=== PATIENT | female | born 1955 | race Caucasian/White ===

== ENCOUNTER → 2021-01-13 08:45 | Outpatient (BNVA) | payer SELFPAY | PROVIDERS: Visit Provider Dermatology | DX: Z13.9 Encounter for screening, unspecified (principal) | CPT/HCPCS: 99398 ==

== ENCOUNTER → 2024-04-10 09:22 | Outpatient (BNVA) | payer OTHER, SELFPAY | DX: Z76.89 Persons encountering health services in other specified circumstances | CPT/HCPCS: 80053; 80061; 85025 ==

== ENCOUNTER → 2024-05-03 11:09 | Outpatient (BNVA) | payer MEDICARE, SELFPAY | PROVIDERS: Visit Provider Student in an Organized Health Care Education/Training Program | DX: Z12.11 Encounter for screening for malignant neoplasm of colon (principal) | CPT/HCPCS: 99024; 99204 ==

== ENCOUNTER → 2024-05-11 16:09 | Outpatient (BNVA) | payer MEDICARE, SELFPAY | PROVIDERS: Visit Provider Nurse Practitioner Family | DX: S42.492A Other displaced fracture of lower end of left humerus, initial encounter for closed fracture (principal); X58.XXXA Exposure to other specified factors, initial encounter | CPT/HCPCS: 73110 ==

== ENCOUNTER 2024-05-11 16:44 | Emergency (ER) | payer MEDICARE, SELFPAY ==
[2024-05-11 17:06] VITALS: BP 162/78; PULSE 70; RESP 17; TEMP 36.7; O2SAT 94; BMI 37.3
--- NOTE | 2024-05-11 17:25 | ED_ITS ---
Documented by User: MONICA Doyle 05/11/24 19:32 HPI - Extremity Problem General: Chief complaint: Extremity Injury, Upper Stated complaint: lt arm inj Time Seen by Provider: 05/11/24 17:12 Source: patient Mode of arrival: ambulatory Limitations: no limitations History of Present Illness: Patient is a 69-year-old female presents to the emergency department with left upper extremity injury that occurred this evening. Initially went to urgent care had x-rays done that showed comminuted fracture of the left distal radius, they sent her here for further evaluation. She states that the event occurred when the wind blew back a large metal door, ultimately she is unsure what happened but just remember sudden sharp pain to her left distal wrist. She is right-hand dominant, has never fractured this wrist before. She is not reporting any distal sensory changes, she can still move her hand and has no problems moving the elbow and no pain at the left elbow. No skin color changes, no coolness to extremity reported. She states she is in mild amount of pain at this time, does want some pain medication in case it gets worse. MD Complaint: joint pain Onset (ago): hour(s) Location: left and upper extremity (Wrist) Radiation: none Associated symptoms: Deny chest pain, fever(s) or rash Related Data Previous Rx's Medication Instructions Recorded hydrochlorothiazide 25 mg tablet 25 mg PO DAILY #90 tabs 04/10/24 losartan 100 mg tablet 100 mg PO DAILY #90 tabs 04/10/24 metoprolol succinate 50 mg 50 mg PO DAILY #90 tabs 04/10/24 tablet,extended release 24 hr polyethylene glycol 3350 17 4 g PO DAILY #119 grams 04/10/24 gram/dose oral powder (Miralax) pramoxine 1 % topical foam 1 applic IN BID #15 grams 05/07/24 (Proctofoam) hydrocodone 5 mg-acetaminophen 325 1 tab PO Q6H PRN pain #20 tabs 05/11/24 mg tablet polyethylene glycol 3350 17 17 g PO DAILY #510 grams 05/11/24 gram/dose oral powder (Miralax) Allergies Allergy/AdvReac Type Severity Reaction Status Date / Time Sulfa (Sulfonamide Allergy causes her Verified 05/11/24 16:01 Antibiotics) to not be able to walk Review of Systems General: Reports: 10 or more systems reviewed and unremarkable except in HPI and below Const: Denies: fever(s) or chills Card: Denies: chest pain Resp: Denies: dyspnea or productive cough GI: Denies: abdominal pain, nausea, vomiting or diarrhea : Denies: flank pain Musc: Reports: joint pain (Left wrist), joint swelling (Left wrist), limited range of motion (Left wrist) and deformity (Left wrist); Denies: neck pain, back pain, extremity pain, extremity swelling, joint redness, joint warmth or muscle weakness Skin/Breast: Denies: rash Neuro: Denies: headache(s), numbness in extremities or weakness in extremities PFSH ED PFSH: Medical History Seborrheic keratosis Colon cancer screening Constipation Screening mammogram for breast cancer Hypertension Encounter to establish care with new provider Family History Father Hypertension Brother Hypertension Social History Smoking and tobacco/nicotine status: never used tobacco/nicotine Physical Exam Const: COMMON NORMALS: no acute distress, patient oriented x3, no limitations, healthy appearing, alert and well nourished HENMT: COMMON NORMALS: normocephalic and atraumatic HEAD & SCALP: normocephalic and atraumatic Neck/C-Spine: COMMON NORMALS: full ROM, supple and no meningeal signs Resp: COMMON NORMALS: normal respiratory effort, No use of accessory muscles and clear to auscultation bilaterally AUSCULTATION: clear to auscultation bilaterally Cardio: COMMON NORMALS: regular rate and regular rhythm RATE: regular rate RHYTHM: regular rhythm Extremity: NARRATIVE EXTREMITY EXAM: Obvious deformity to left wrist. Distal sensations intact, palpable radial pulse. Swelling noted to the left wrist, reproducible tenderness to palpation over this area. Normal elbow examination. Normal hand examination. Normal capillary refill. No skin color changes. No skin tenting. Neuro: COMMON NORMALS: patient oriented x3, moves all extremities, no focal motor deficits and no sensory deficits noted SENSORIUM/ORIENTATION: Yes alert MENINGEAL SIGNS: Yes no meningeal signs Skin: COMMON NORMALS: no rashes or lesions noted GENERAL SKIN EXAM: no rashes or lesions noted Course Vital Signs: Vital signs: Vital Signs Temperature 98.0 F 05/11/24 17:06 Pulse Rate 96 05/11/24 18:52 Respiratory Rate 21 H 05/11/24 18:52 Blood Pressure 139/63 05/11/24 18:52 Pulse Oximetry 97 05/11/24 18:51 Oxygen Delivery Me thod Room Air 05/11/24 17:06 MDM - Extremity (Nontraumatic) Medical Decision Making Patient presented with deformity to left wrist after injuring prior to arrival. Palpable radial pulse, no distal sensory changes or signs of vascular compromise. Spoke with Dr. Anguiano, and reviewed x-ray images, recommends reduction in the ED with outpatient follow-up after being placed in sugar-tong splint. Discussed case with Dr. Bales, who will place procedural sedation note. Did achieve some reapproximation with the reduction, she was placed in a sugar-tong splint and post splint neurovascular status intact. Monitored here in the emergency department for period of time postanesthesia. Pain has been controlled here, she will be sent in pain medications and informed to follow-up outpatient with orthopedics. No complications with anesthesia or reduction. Informed of return precautions, endorsed understanding. All radiology interpretation(s) finalized by discharge Discharge Plan Discharge Patient Disposition: Home Clinical Impression: Distal radial fracture Qualifiers: Encounter type: initial encounter Fracture type: closed Fracture morphology: other intra-articular Laterality: left Qualified Code(s): S52.572A - Other intraarticular fracture of lower end of left radius, initial encounter for closed fracture Condition: Stable Prescriptions: New hydrocodone-acetaminophen 5-325 mg tablet 1 tab PO Q6H PRN (Reason: pain) Qty: 20 0RF polyethylene glycol 3350 [Miralax] 17 gram/dose powder 17 g PO DAILY Qty: 510 0RF Rx Instructions: Take 1 scoop daily while taking pain medications. No Action hydrochlorothiazide 25 mg tablet 25 mg PO DAILY Qty: 90 1RF losartan 100 mg tablet 100 mg PO DAILY Qty: 90 1RF metoprolol succinate 50 mg tablet extended release 24 hr 50 mg PO DAILY Qty: 90 1RF polyethylene glycol 3350 [Miralax] 17 gram/dose powder 4 g PO DAILY Qty: 119 0RF pramoxine [Proctofoam] 1 % foam 1 applic IN BID Qty: 15 2RF Discharge Orders: Discharge ED (Routine); Ordered 05/11/24 Ordered By: Gene Akhtar Referrals: Madiha Campos NP [Primary Care Provider] - Patient Instructions: Arm Fracture in Adults (ED) Activity Restrictions/Additional Instructions: Splint on, follow-up with orthopedics as we discussed. Take pain medications. Return with any numbness, skin color changes, severe worsening of pain, or other concerning symptoms. Coding Level of Care Code ED Grinding Room Inspector for Chg Fwd Documented by User: Meena Bales MD 05/11/24 19:25 HPI - Extremity Problem General: Chief complaint: Extremity Injury, Upper Stated complaint: lt arm inj Time Seen by Provider: 05/11/24 17:12 Related Data Previous Rx's Medication Instructions Recorded hydrochlorothiazide 25 mg tablet 25 mg PO DAILY #90 tabs 04/10/24 losartan 100 mg tablet 100 mg PO DAILY #90 tabs 04/10/24 metoprolol succinate 50 mg 50 mg PO DAILY #90 tabs 04/10/24 tablet,extended release 24 hr polyethylene glycol 3350 17 4 g PO DAILY #119 grams 04/10/24 gram/dose oral powder (Miralax) pramoxine 1 % topical foam 1 applic IN BID #15 grams 05/07/24 (Proctofoam) hydrocodone 5 mg-acetaminophen 325 1 tab PO Q6H PRN pain #20 tabs 05/11/24 mg tablet polyethylene glycol 3350 17 17 g PO DAILY #510 grams 05/11/24 gram/dose oral powder (Miralax) Allergies Allergy/AdvReac Type Severity Reaction Status Date / Time Sulfa (Sulfonamide Allergy causes her Verified 05/11/24 16:01 Antibiotics) to not be able to walk [facility] ED PFSH: Medical History Seborrheic keratosis Colon cancer screening Constipation Screening mammogram for breast cancer Hypertension Encounter to establish care with new provider Family History Father Hypertension Brother Hypertension Social History Smoking and tobacco/nicotine status: never used tobacco/nicotine Course Vital Signs: Vital signs: Vital Signs Temperature 98.0 F 05/11/24 17:06 Pulse Rate 96 05/11/24 18:52 Respiratory Rate 21 H 05/11/24 18:52 Blood Pressure 139/63 05/11/24 18:52 Pulse Oximetry 97 05/11/24 18:51 Oxygen Delivery Me thod Room Air 05/11/24 17:06 MDM - Extremity (Nontraumatic) Medical Decision Making Patient presented with deformity to left wrist after injuring prior to arrival. Palpable radial pulse, no distal sensory changes or signs of vascular compromise. Spoke with Dr. Anguiano, and reviewed x-ray images, recommends reduction in the ED with outpatient follow-up after being placed in sugar-tong splint. Discussed case with Dr. Bales, who will place procedural sedation note. Did achieve some reapproximation with the reduction, she was placed in a sugar-tong splint and post splint neurovascular status intact. Monitored here in the emergency department for period of time postanesthesia. Pain has been controlled here, she will be sent in pain medications and informed to follow-up outpatient with orthopedics. No complications with anesthesia or reduction. Informed of return precautions, endorsed understanding. Procedural sedation Time: 1904 Confirmed: Patient and procedure correct. Consent: Consent: The risks and benefits of monitored anesthesia care, including the risk of aspiration, nausea/vomiting and the risks of not performing the procedure, including severe pain and inability to complete the procedure, were all discussed with the patient. The alternatives of performing the procedure, including local anesthesia and IV analgesia, also discussed. The patient has a ride home available Indication: Closed reduction. Monitoring: Cardiac, blood pressure, continuous pulse oximetry. Preparation: Suction, IV access, Constant attendance, Supplemental oxygen. ASA Class: I- healthy patient. No significant family history of sedation complications See ER physician note for summary of the patient's present medication list and for drug allergy and intolerance history Physical exam: Airway: appears normal, Heart: regular rate and rhythm, Breath sounds: equal. Pre sedation vital signs: See nurse's notes. Procedural sedation: 50 mg IV propofol. . Post sedation vital signs: See nurse's notes. Patient tolerated: Well. Complications: The patient was recovered from the sedation without complication or incident. Post sedation condition: Patient returned to pre-sedation level of awareness. The monitoring was discontinued at this time. Performed by: Self. Pt attended by independent trained observer time of sedation was 15 minutes. . Discharge Plan Discharge Patient Disposition: Home Clinical Impression: Distal radial fracture Qualifiers: Encounter type: initial encounter Fracture type: closed Fracture morphology: other intra-articular Laterality: left Qualified Code(s): S52.572A - Other intraarticular fracture of lower end of left radius, initial encounter for closed fracture Condition: Stable Prescriptions: New hydrocodone-acetaminophen 5-325 mg tablet 1 tab PO Q6H PRN (Reason: pain) Qty: 20 0RF polyethylene glycol 3350 [Miralax] 17 gram/dose powder 17 g PO DAILY Qty: 510 0RF Rx Instructions: Take 1 scoop daily while taking pain medications. No Action hydrochlorothiazide 25 mg tablet 25 mg PO DAILY Qty: 90 1RF losartan 100 mg tablet 100 mg PO DAILY Qty: 90 1RF metoprolol succinate 50 mg tablet extended release 24 hr 50 mg PO DAILY Qty: 90 1RF polyethylene glycol 3350 [Miralax] 17 gram/dose powder 4 g PO DAILY Qty: 119 0RF pramoxine [Proctofoam] 1 % foam 1 applic IN BID Qty: 15 2RF Discharge Orders: Discharge ED (Routine); Ordered 05/11/24 Ordered By: Gene Akhtar Referrals: Madiha Campos NP [Primary Care Provider] - Patient Instructions: Arm Fracture in Adults (ED) Activity Restrictions/Additional Instructions: Splint on, follow-up with orthopedics as we discussed. Take pain medications. Return with any numbness, skin color changes, severe worsening of pain, or other concerning symptoms. Coding Level of Care Code ED Grinding Room Inspector for Petrona Chavez
[2024-05-11 17:47] VITALS: RESP 16; O2SAT 94
[2024-05-11] MEDS: HYDROmorphone 1 mg/mL INJ 1 mL IVP (17:47)
[2024-05-11 17:53] VITALS: BP 132/65; PULSE 74; O2SAT 94
--- NOTE | 2024-05-11 17:56 | XRR_ITS ---
PROCEDURE INFORMATION: Exam: XR Left Wrist Exam date and time: 05/11/2024 6:06 PM Age: 69 years old Clinical indication: Injury or trauma; Fall; Blunt trauma (contusions or hematomas); Wrist; Left; Additional info: Post-reduction film TECHNIQUE: Imaging protocol: Radiologic exam of the left wrist. Views: 3 or more views. COMPARISON: CR XR wrist LT min 3V* [id number] 05/11/2024 4:10 PM FINDINGS: Bones/joints: Interval closed reduction of a comminuted distal humeral metaphysis fracture and splint placement. Improved angulation compared with prior, though there is similar 1/2 shaft with posterior displacement of the distal fragment. Soft tissues: Normal. XR/XR wrist LT min 3V* [id number] IMPRESSION: Interval closed reduction of a distal humeral metaphysis fracture with improved angulation but ongoing displacement.
[2024-05-11] MEDS: ondansetron 2 mg/ML SDV 2 mL 4 MG IVP (18:18)
[2024-05-11] MEDS: propofol 10 mg/mL SDV 20 mL 50 MG IVP (18:42)
[2024-05-11 18:51] VITALS: BP 132/58; PULSE 54; RESP 22; O2SAT 97
[2024-05-11 18:52] VITALS: BP 139/63; PULSE 96; RESP 21; O2SAT 96
--- NOTE | 2024-05-11 19:11 | PC.NURSE ---
wasted 150 mg of propofol with PIETRO Sharif.
[2024-05-11] MEDS: HYDROcodone-acetaminophen 5-325 mg Tablet 2 TAB PO (19:50)
[2024-05-11 19:53] VITALS: BP 135/64; PULSE 59; O2SAT 96
--- NOTE | 2024-05-14 08:16 | DCPLANNER ---
message sent to Ortho for follow up on left distal fx.
== END 2024-05-11 19:54 | disposition home or self-care (01) ==
PROVIDERS: Emergency Provider Physician Assistant
DX: S52.572A Other intraarticular fracture of lower end of left radius, initial encounter for closed fracture (principal); I10 Essential (primary) hypertension; X58.XXXA Exposure to other specified factors, initial encounter
CPT/HCPCS: 73110; 96374; 96375; 99285; J1171; J2405; J2704

== ENCOUNTER 2024-05-14 10:09 | Outpatient (CLI) | payer MEDICARE, SELFPAY ==
--- NOTE | 2024-05-14 10:13 | XRR_ITS ---
PROCEDURE INFORMATION: Exam: XR Chest Exam date and time: 05/14/2024 10:29 AM Age: 69 years old Clinical indication: Abdominal pain; Generalized; Patient HX: Constipation, bloody stools for 2 months; Additional info: Acute abdominal pain, bloody stools, scant frequent bm TECHNIQUE: Imaging protocol: Radiologic exam of the chest. Views: 1 view. COMPARISON: No relevant prior studies available. FINDINGS: Tubes, catheters and devices: None. Lungs: Evidence for calcified lung granuloma in the right chest. Lung volumes are decreased. Linear density identified within bilateral lower lungs. The lungs appear otherwise clear. Pleural spaces: No pleural effusion. No pneumothorax. Heart/Mediastinum: Mediastinum and dominik appear unremarkable. Bones/joints: Mild generalized bony degenerative changes. Bony structures appear otherwise unremarkable. PROCEDURE INFORMATION: Exam: XR Abdomen Exam date and time: 05/14/2024 10:29 AM Age: 69 years old Clinical indication: Abdominal pain; Generalized; Patient HX: Constipation, bloody stools for 2 months; Additional info: Acute abdominal pain, bloody stools, scant frequent bm TECHNIQUE: Imaging protocol: Radiologic exam of the abdomen. Views: 2 Views. Upright and supine views. AP Supine and Upright COMPARISON: No relevant prior studies available. FINDINGS: Tubes, catheters and devices: None. Gastrointestinal tract: Moderate volume of colonic fecal material identified throughout colon. Intraperitoneal space: No visualized evidence for free intraperitoneal air, within the limitations of this study. Organs: No solid organomegaly identified. Bones/joints: Mild to moderate generalized bony degenerative changes. Bony structures appear otherwise unremarkable. Soft tissues: Unremarkable. Other findings: No radiopaque foreign body or abnormal opacity. XR/XR acute abdomen series [id number] IMPRESSION: Linear bilateral lower chest pulmonary atelectasis, or scarring. Decreased lung volumes. IMPRESSION: Moderate degree constipation.
== END 2024-05-14 10:10 | disposition home or self-care (01) ==
PROVIDERS: Visit Provider Emergency Medicine
DX: Z12.11 Encounter for screening for malignant neoplasm of colon (principal); R10.9 Unspecified abdominal pain; J98.11 Atelectasis; R91.8 Other nonspecific abnormal finding of lung field; K59.00 Constipation, unspecified; J98.4 Other disorders of lung; M47.9 Spondylosis, unspecified
CPT/HCPCS: 74022

== ENCOUNTER → 2024-05-15 14:29 | Outpatient (BNVA) | payer SELFPAY | PROVIDERS: Visit Provider Student in an Organized Health Care Education/Training Program | DX: S52.502A Unspecified fracture of the lower end of left radius, initial encounter for closed fracture; W20.8XXA Other cause of strike by thrown, projected or falling object, initial encounter | CPT/HCPCS: 73110; 99204 ==

== ENCOUNTER 2024-05-23 10:06 | Day surgery (SDC) | payer MEDICARE, SELFPAY ==
[2024-05-23] VITALS (11 sets, daily range): BP systolic 112–167; BP diastolic 68–102; PULSE 69–87; RESP 9–23; TEMP 36.3–37.2; O2SAT 91–97; BMI 37.2
--- NOTE | 2024-05-23 | XR_ITS ---
WS: [id number] Exam: XR wrist LT min 3V* [id number] Date/Time of Exam: 05/23/2024 12:00 AM Reason For Exam: TROY PICS Intraoperative AP and lateral views of the LEFT wrist are submitted. Images depict volar plate and screw fixation involving a comminuted fracture of the distal radius. Al ignment is satisfactory for healing. Postop changes in the adjacent soft tissues.
[2024-05-23] MEDS: ketorolac 30 mg/mL INJ IVP (10:27)
[2024-05-23] MEDS: acetaminophen 1,000 MG/100 ML PIGGYBACK 400 MG IV (10:27)
[2024-05-23] MEDS: sodium chloride 0.9% 1,000 ML 30 ML IV (10:27)
[2024-05-23] MEDS: scopolamine 1 mg PATCH 1 PATCH TRANSDERMA (10:28)
--- NOTE | 2024-05-23 10:36 | ANES.PREANE2 ---
Pre-Anesthetic Assessment Height/Weight: Height 1.6 m Weight 95.254 kg Temp Pulse Resp BP Pulse Ox O2 Del Method 99 F 87 18 160/102 95 Room Air 05/23/24 10:23 05/23/24 10:23 05/23/24 10:23 05/23/24 10:23 05/23/24 10:23 05/23/24 10:29 Operation Date: 05/23/24 16:25 Proposed Procedures p ORIF Wrist ORIF Distal Radius(Left) - David Faribault, DO Familial anesthetic complications: None Was Beta Idalia taken within 24 hours: N/A Was Clonidine taken within 24 hours: N/A Last intake: > 8 hrs Social No alcohol and No tobacco Exam alert, oriented x 3, clear to auscultation bilaterally and regular rate & rhythm Airway Mallampati: Class II Dentition: full CV/HEM Hypertension Metabolic Morbid Obesity Anesthetic Plan ASA status: 3 Anesthesia: General and Regional (specify below) Risk of > 500 ml blood loss (7ml/kg in children): No Medications/Allergies Home Medications Medication Instructions Recorded Confirmed Last Taken Type hydrochlorothiazide 25 mg tablet 25 mg PO DAILY #90 tabs 04/10/24 05/22/24 05/19/24 Rx losartan 100 mg tablet 100 mg PO DAILY #90 tabs 04/10/24 05/22/24 05/22/24 Rx metoprolol succinate 50 mg 50 mg PO DAILY #90 tabs 04/10/24 05/22/24 05/22/24 Rx tablet,extended release 24 hr hydrocodone 5 mg-acetaminophen 325 1 tab PO Q6H PRN pain #20 tabs 05/11/24 05/22/24 05/21/24 Rx mg tablet pramoxine 1 % topical foam 1 applic CA BID #15 grams 05/14/24 05/22/24 Unknown Rx (Proctofoam) bisacodyl 5 mg tablet,delayed 5 mg PO DAILY PRN Constipation 05/22/24 05/22/24 Unknown History release (Dulcolax (bisacodyl)) Allergies Allergy/AdvReac Type Severity Reaction Status Date / Time Sulfa (Sulfonamide Allergy causes her Verified 05/23/24 10:19 Antibiotics) to not be able to walk Current Medications Generic Name Dose Route Start Last Admin Trade Name Freq PRN Reason Stop Dose Admin Sodium Chloride 1,000 mls @ 30 mls/hr 05/23/24 10:15 05/23/24 10:27 Sodium Chloride 0.9% IV 05/24/24 10:14 30 mls/hr .Q24H BLADE Administration PFSH Anesthesia Medical History Blood in stool, nory Seborrheic keratosis Colon cancer screening Constipation Screening mammogram for breast cancer Hypertension Encounter to establish care with new provider Family History Father Hypertension Brother Hypertension Social History Smoking and tobacco/nicotine status: never used tobacco/nicotine Data Anesthesia Cardiac Studies: No Data to Display
--- NOTE | 2024-05-23 11:18 | ANES.PROC ---
Anesthesia Procedures Procedure/Date: 05/23/24 Nerve Block ^: Nerve Block 1: Main Anesthesia: general anesthesia Time Out Performed: Yes Consent: requested by attending/covering physician, from patient, from other, risks and benefits reviewed and patient agrees to proceed Nerve block location: axillary (L) Anesthesia monitors applied: pulse oximetry, EKG, BP cuff and oxygen Nerve block position: supine Anesthetic Used: ropivicaine 0.5% (30 ml) and with decadron (4 mg) Ultrasound used to: recognize landmarks and visualize and ID brachial plexus Nerve Stimulator Used?: No Interscalene/Femoral BLK: 2 stimuplex 22 g needle used for position and inplane approach, visualize local anesthetic spread and no vascular puncture identified Injection: neg aspiration of heme Patient Tolerated Procedure: well Complications: none
--- NOTE | 2024-05-23 11:37 | W.PM.OPSUD ---
Surgery/Procedure H&P Update DATE OF PROCEDURE: May 23, 2024 DATE H&P PERFORMED: 05/15/24 H&P UPDATE INFORMATION: I have reviewed H&P completed within last 30 days, I have examined patient prior to procedure and No changes to prior documentation PREOP DIAGNOSIS: Left distal radius fracture PRIMARY INDICATION FOR PROCEDURE: Left distal radius fracture displaced PLANNED PROCEDURE: Operation Date: 05/23/24 16:25 Proposed Procedures p ORIF Wrist ORIF Distal Radius(Left) - David Anguiano DO
[2024-05-23] MEDS: ceFAZolin 2,000 MG in sodium chloride 0.9% (plus) 50 ML 100 MG IV (11:51)
--- NOTE | 2024-05-23 13:35 | P.BOP_ITS ---
Date of Procedure: 05/23/2024 Surgeon: David Anguiano DO Professor Of Industrial Technology(s): Rafat Anguiano PA-C Procedure(s) performed: Left distal radius open reduction internal fixation 4 part intra-articular Findings of the procedure(s): Patient was found to have a comminuted displaced four-part intra-articular left distal radius fracture underwent ORIF this point without issues or complications, placed in a volar splint taken PACU stable condition Estimated blood loss: 10 mL Specimen(s) removed: None Post-operative diagnosis: Left distal radius four-part intra-articular fracture
--- NOTE | 2024-05-23 13:36 | P.OP_ITS ---
Operative Report Date of procedure: May 23, 2024 Surgeon: David Anguiano DO [employer] Operator: Rafat Anguiano PA-C: PA was necessary for assistance in this case with hand positioning to execute the procedure, retraction and protection of neurovascular structures, as well as to assist with reduction and assistance with instrumentation and fixation, as well as to assist with wound closure and dressing application. Procedure: Preop Diagnosis ?Left distal radius fracture ? Procedure: Post-op diagnosis: Same,4 part intra-articular Procedure done: Left distal radius open reduction internal fixation, 4-part intra-articular Implants: ?Arthrex left 3-hole narrow volar locking plate Combination of locking and nonlocking screws 2.7 mm distal Combination of locking and nonlocking screws 3.5 mm proximal Surgeon: David Anguiano DO Anesthesia: General and nerve Block (Regional) Estimated blood loss: 10 mL Tourniquet time: 61minutes IV fluids: See anesthesia record Complications: None Findings: See operative report narrative Condition: stable Disposition: same day Brief History: Patient is a 69-year-old female who presented to my office for a [id number] left distal radius fracture.? Patient has significant comminution and shortening as well as dorsal angulation patient active and at this point time through shared decision making patient like to proceed with a left distal radius ORIF.? We had a detailed discussion in the office about nonoperative and operative intervention.? At this point time I feel through shared decision? best option would be open reduction internal fixation she is active and already has a considerable deformity?and displacement as result through shared decision making patient would like to proceed with ORIF left distal radius fracture.? Detail the risk benefits complication alternatives to treatment option.? Understanding risk for surgery patient elects to proceed with surgical intervention.? All questions been answered at this time. Procedure: Patient seen and evaluated in the preoperative holding area.? Consent reviewed and signed with patient.? Correct extremities were marked and consent was reviewed and signed.? Patient was seen and evaluated by anesthesia department.? Underwent regional anesthesia. Once cleared for surgery pt was taken back to the operative suite.? Patient was then transported into the operative suite and kept on the OR gurney, all bony prominences well-padded patient was appropriate secured to bed in supine position.? An armboard was applied to the left upper extremity.? The left upper extremity had a nonsterile tourniquet applied.? Patient subsequently was then prepped and draped in standard orthopedic fashion she underwent anesthesia per the anesthesia department.? A final timeout was performed.? Patient received appropriate preoperative antibiotics. Esmarch was used exsanguinate the left upper extremity and tourniquet was insufflated to 250 mmHg. A standard modified FCR volar approach was performed to the left distal radius.? Sharp scalpel incision through skin and subcutaneous tissue.? I then switched to Littler dissection scissors identify the FCR tendon releases out of the sheath both proximally and distally mobilized the tendon ulnarly and then subsequently incised the floor of the FCR tendon sheath with care to just incise the floor.? I then bluntly sweep the FPL tendon muscle belly ulnarly and placed blunt self- retaining retractor.? At this point time I direct visualization of the pronator quadratus which was incised in standard L fashion off the radial and distal border in the distal radius and fracture site was scraped clean of interposed muscle belly.? I then identified the 4 part intra-articular distal radius fracture.? This was subsequently opened above and freed of interposing muscle belly as well as periosteum and fracture hematoma.? I did have to utilize my [place] which was placed through the fracture pattern and disengage the fracture and performed manual manipulation and anatomic reduction of the distal radius fracture.? ?Once satisfied with reduction and had appropriate anatomic reduction of the volar cortex.? This was confirmed with mini C arm in multiple orthogonal imaging.? At this point time? I selected a Arthrex anatomic distal radius plate utilizing a narrow 3-hole plate which would have appropriate spread distally.? This was then placed up to the distal radius while maintaining my reduction, pi ns were placed distally and proximally to confirm appropriate placement of the plate along the distal radius.? Minor adjustments were made and once I was satisfied I then subsequently drilled a bicortical 3.5 screw proximally in the oblong hole to allow for appropriate sliding of the distal radius plate appropriately to perfect position on the distal radius.? This had excellent fixation and purchase and brought the plate to bone.? While maintaining my reduction I then confirmed in multiple orthogonal imaging that my plate was in appropriate position.? Once satisfied with my position I then subsequently placed the peek targeting guide on the distal locking screws with Arthrex.? The locking guide was then subsequently loaded and I subsequently drilled and placed a fully threaded cortical screw to compress the plate to bone for the distal fracture fragment.? This was performed with plan to then remove this and placed a shorter locking screw had bicortical fixation with excellent purchase and appropriate reduction of my volar tilt and bringing plate to bone of the distal fragment and plate.? Once I was satisfied with my plate position as well as reduction of the distal radius which was confirmed on AP oblique and lateral imaging I then subsequently drilled measured and placed 3 locking screws around this cortical screw.? While drilling the most ulnar screw I did utilize a dental pick to hold up this lunate facet fracture fragment to hold up the joint line and maintain alignment while drilling and placing the locking screw distally. Then I subsequently removed the cortical screw and placed a shorter locking screw that did not penetrate the dorsal cortex.?? This completed my distal fixation.? I did utilize mini C arm to confirm appropriate placement of the screws these were all within the distal radius and no joint involvement within the radiocarpal joint or the DRUJ.? These had appropriate subchondral support and maintenance of reduction and fixation of the distal radius fracture.? ?I then turned my attention proximally and then I screwed in the locking guides for my final to screws proximally these were then subsequently drilled measured and appropriate length locking screws were then placed proximally with excellent fixation and locking technology into the plate.? This completed my construct.? The peek guide was subsequently removed and final imaging of the left distal radius open reduction internal fixation was taken of AP lateral as well and is orthogonal imaging.? I then took a inclination view which showed my radial styloid screw was out of the penetration of the joint.? All my distal screws were appropriate length did not penetrate dorsal cortex and did not penetrate the joint.? This completed my fixation.? Smooth wrist range of motion was then noted with no evidence of clicking. Wrist was then taken through pronation supination and stressed the DRUJ which was found to be stable.? The wound was then thoroughly irrigated.? Tourniquet was then subsequently deflated.? Hemostasis satisfactory with bipolar electrocautery.? I then subsequently placed interrupted 3-0 Vicryl sutures for subcutaneous tissue and then subsequently placed a nylon the skin for closure.? Incision was then dressed with Xeroform 4 x 4's Kerlix cast padding and a volar Ortho-Glass splint was then applied with Darell wrap and placed in a sling.? Disposition: Patient taken to PACU in stable condition recovering well receive appropriate discharge instructions as well as pain medication postoperatively.? Maintain splint until follow-up.? Nonweightbearing to operative upper extremity We will follow-up with Dr. Anguiano in the office in 2 weeks.? If any questions or concerns feel free to contact the office.
--- NOTE | 2024-05-23 13:38 | PM.PACU ---
PACU note Narrative: Patient is a 69-year-old female that just underwent a left wrist ORIF. Patient transferred to PACU in stable condition. Pain is well controlled. Dressing on hand is dry and in place. Patient's fingers are warm and well-perfused. Patient received a block for left arm so unable to assess sensation or motor. Exam: awake Disposition: discharged
== END 2024-05-23 15:01 | disposition home or self-care (01) ==
PROVIDERS: Visit Provider Student in an Organized Health Care Education/Training Program
PROC: (CPT 25609; principal; 2024-05-23 11:25)
DX: S52.502A Unspecified fracture of the lower end of left radius, initial encounter for closed fracture (principal); E66.01 Morbid (severe) obesity due to excess calories; Z68.37 Body mass index [BMI] 37.0-37.9, adult; I10 Essential (primary) hypertension; Z79.899 Other long term (current) drug therapy; Z88.2 Allergy status to sulfonamides
CPT/HCPCS: 25609; 73110; 76000; C1713; J0131; J0690; J1100; J1885; J2250; J2405; J2704; J2795; J3010; J7030

== ENCOUNTER → 2024-06-05 13:48 | Outpatient (BNVA) | payer MEDICARE, SELFPAY | PROVIDERS: Visit Provider Physician Assistant | DX: S52.502D Unspecified fracture of the lower end of left radius, subsequent encounter for closed fracture with routine healing (principal); Z98.890 Other specified postprocedural states; X58.XXXD Exposure to other specified factors, subsequent encounter | CPT/HCPCS: 73110 ==

== ENCOUNTER 2024-06-05 14:45 | Outpatient (CLI) | payer MEDICARE, SELFPAY | END 2024-06-05 14:46 | disposition home or self-care (01) | LOC: SPT 14:46 | PROVIDERS: Visit Provider Physician Assistant | DX: Z47.89 Encounter for other orthopedic aftercare (principal); S52.592D Other fractures of lower end of left radius, subsequent encounter for closed fracture with routine healing; X58.XXXS Exposure to other specified factors, sequela | CPT/HCPCS: 99024; L3908 ==

== ENCOUNTER → 2024-06-19 09:26 | Outpatient (BNVA) | payer MEDICARE, SELFPAY | PROVIDERS: Visit Provider Physician Assistant | DX: Z98.890 Other specified postprocedural states (principal); S52.502D Unspecified fracture of the lower end of left radius, subsequent encounter for closed fracture with routine healing; X58.XXXD Exposure to other specified factors, subsequent encounter | CPT/HCPCS: 73110; 99024 ==